=== PATIENT | female | born 1940 | race Caucasian/White ===

== ENCOUNTER → 2018-02-02 | Outpatient (CLI) | payer OTHER ==
[~2018-02-02] MED LIST: ALTACE10 MG PO; ARICEPT10 MG PO; ASPIR 8181 M1 PO; ATENOLOL100 MG; ATENOLOL100 MG PO; ATIVAN0.5 MG PO; CALCIUM 500 MG1 EACH PO; CALCIUM 600 +1 EACH PO; CLONAZEPAM0.5 MG PO; CYCLOBENZAPRINE5 MG; DONEPEZIL HCL10 MG; KEFLEX500 MG PO; MULTIPLE VITAM1 EAC1 PO; NAMENDA 5 MG; NAMENDA10 MG PO; NEURONTIN100 MG PO; PERCOCET 5/31 TABLET PO; SEROQUEL12.5 MG PO; SIMVASTATIN40 MG; ULTRAM50 MG PO; VITAMIN D31000 UNI2 PO; XARELTO20 MG PO; ZESTRIL40 MG PO; ZOCOR40 MG PO
== END | disposition home or self-care (01) ==
LOC: RAD 10:42 → EDSTATUS 11:00
DX: R22.42 Localized swelling, mass and lump, left lower limb (principal); R93.8 Abnormal findings on diagnostic imaging of other specified body structures
CPT/HCPCS: 77012

== ENCOUNTER 2018-03-01 20:31 | Emergency (ER) | payer OTHER ==
[~2018-03-01] VITALS: Ht 154.9 cm; Wt 77.0 kg
[2018-03-01 21:47] LABS: HEMOGLOBIN 13.1 G/DL (11.9-15.5); MCHC 33.6 G/DL (30.0-36.0); MCV 95.4 FL (83-99); PLATELET COUNT 129 K/uL (156-360); RBC DIS.WIDTH-CV 13.2 % (11.8-14.6); RED BLOOD COUNT 4.09 M/uL (3.80-5.20); WHITE BLOOD COUNT 4.7 K/uL (4.1-10.2)
[2018-03-01 22:00] LABS: CHLORIDE 108 mEq/L (99-109); SODIUM 144 mEq/L (136-147)
[2018-03-01 22:02] LABS: GLUCOSE 108 mg/dL (70-99)
[2018-03-01 22:06] LABS: CREATININE 0.8 mg/dL (0.6-1.3); GFR ESTIMATE (CALCULATED) > 59 mL/min/
[2018-03-01 22:07] LABS: UREA NITROGEN (BUN) 16 mg/dL (9-23)
[2018-03-02 01:19] VITALS: BP 142/100
== END 2018-03-02 01:41 | disposition home or self-care (01) ==
LOC: EME → EDBD 20:31 → EME 20:31
PROVIDERS: Emergency Medicine
DX: S00.03XA Contusion of scalp, initial encounter (principal); W18.30XA Fall on same level, unspecified, initial encounter; Y92.129 Unspecified place in nursing home as the place of occurrence of the external cause; F03.90 Unspecified dementia, unspecified severity, without behavioral disturbance, psychotic disturbance, mood disturbance, and anxiety; I45.10 Unspecified right bundle-branch block; R94.31 Abnormal electrocardiogram [ECG] [EKG]; I10 Essential (primary) hypertension; K21.9 Gastro-esophageal reflux disease without esophagitis; Z79.82 Long term (current) use of aspirin; Z85.820 Personal history of malignant melanoma of skin; Z98.890 Other specified postprocedural states; Z88.2 Allergy status to sulfonamides
CPT/HCPCS: 70450; 72125; 73060; 80048; 85027; 93005; 99281; 99284

== ENCOUNTER 2018-05-17 18:36 | Emergency (ER) | payer OTHER ==
[~2018-05-17] VITALS: Ht 172.7 cm; Wt 85.9 kg
[2018-05-17 20:42] LABS: HEMOGLOBIN 12.9 G/DL (11.9-15.5); MCH 32.2 PG (29.0-34.0); MCHC 33.9 G/DL (30.0-36.0); MCV 94.8 FL (83-99); PLATELET COUNT 111 K/uL (156-360); RBC DIS.WIDTH-CV 13.7 % (11.8-14.6); RBC DIS.WIDTH-SD 48.5 % (39-53); RED BLOOD COUNT 4.01 M/uL (3.80-5.20); WHITE BLOOD COUNT 5.5 K/uL (4.1-10.2)
[2018-05-17 20:58] LABS: APPEARANCE SL.HAZY ((CLEAR)); BILIRUBIN NEGATIVE; BLOOD NEGATIVE; COLOR YELLOW ((YELLOW)); GLUCOSE (STRIP) NEGATIVE; KETONES NEGATIVE; LEUKOCYTES SMALL; NITRITE NEGATIVE; PROTEIN (STRIP) NEGATIVE; SPECIFIC GRAVITY 1.012 (1.000-1.030); UROBILINOGEN 0.2 MG/DL (0.2-1.0)
[2018-05-17 21:15] LABS: CHLORIDE 104 MEQ/L (99-109); POTASSIUM 4.4 MEQ/L (3.7-5.4); SODIUM 140 MEQ/L (136-147)
[2018-05-17 21:16] LABS: BACTERIA RARE /HPF; EPITHELIAL CELLS RARE /HPF; MUCUS TRACE /LPF; RED BLOOD CELLS 0-5 /HPF (0-5)
[2018-05-17 21:21] LABS: CREATININE 0.8 MG/DL (0.6-1.3); GFR ESTIMATE (CALCULATED) > 59 mL/min/; GLUCOSE 104 mg/dL (70-99); UREA NITROGEN (BUN) 15 mg/dL (9-23)
[2018-05-17 22:28] VITALS: BP 151/81
== END 2018-05-17 22:29 | disposition home or self-care (01) ==
LOC: EXP 18:36 → EME 18:36 → EXP 22:29
PROVIDERS: Physician Assistant
DX: S80.12XA Contusion of left lower leg, initial encounter (principal); S00.83XA Contusion of other part of head, initial encounter; W18.30XA Fall on same level, unspecified, initial encounter; Y92.199 Unspecified place in other specified residential institution as the place of occurrence of the external cause; F03.90 Unspecified dementia, unspecified severity, without behavioral disturbance, psychotic disturbance, mood disturbance, and anxiety; I10 Essential (primary) hypertension; K21.9 Gastro-esophageal reflux disease without esophagitis; Z85.820 Personal history of malignant melanoma of skin; Z88.2 Allergy status to sulfonamides
CPT/HCPCS: 70450; 72125; 73502; 73590; 73630; 80048; 81003; 85027; 99281; 99283